=== PATIENT | male | born 1980 | race African-American/Black ===

== ENCOUNTER 2023-01-01 11:33 | Emergency (ER) | payer OTHER ==
[2023-01-01 11:53] VITALS: BP 135/86; PULSE 73; RESP 18; TEMP 97.8; BMI 36.9
[2023-01-01] MEDS ORDERED: LIDOCAINE 5% TOPICAL PATCH TP ONE (13:11)
[2023-01-01] MEDS ORDERED: ACETAMINOPHEN 500 MG TABLET (FP) PO ONE (13:11)
[2023-01-01] MEDS ORDERED: ACETAMINOPHEN 325 MG TABLET (FP) ONE (13:41)
[2023-01-01] MEDS ORDERED: LIDOCAINE 5% TOPICAL PATCH ONE (13:41)
[2023-01-01 14:03] LABS: BASO % 0.4 % (0-2.0); EOS % 2.5 % (0-4.5); HEMATOCRIT 40.8 % (35.4-49); LYMPH % 24.3 % (8-40); MCH 25.9 pg (25.7-33.7); MCHC 31.9 g/dl (32.0-35.9); MEAN CELL VOLUME 81.3 fl (80-96); MEAN PLT VOLUME 7.5 fl (7.5-11.1); MONO % 8.2 % (3.8-10.2); NEUT % 64.6 % (42.8-82.8); PLATELET COUNT 397 10^3/uL (134-434); RBC 5.03 M/mm3 (4.00-5.60); RDW 14.8 % (11.9-15.9); WHITE BLOOD COUNT 11.2 K/mm3 (4.0-10.0)
[2023-01-01 14:20] LABS: POTASSIUM 5.3 mmol/L (3.5-5.1)
[2023-01-01 14:22] LABS: CALCIUM 9.4 mg/dL (8.5-10.1)
[2023-01-01 14:23] LABS: ALBUMIN 3.5 g/dl (3.4-5.0); BLOOD UREA NITROGEN 14.6 mg/dL (7-18)
[2023-01-01 14:25] LABS: CREATININE 0.9 mg/dL (0.55-1.3)
[2023-01-01 14:27] LABS: BILIRUBIN,TOTAL 0.5 mg/dL (0.2-1)
[2023-01-01 14:34] LABS: PH,URINE 5.5 (5.0-8.0); URINE APPEARANCE CLEAR; URINE BILIRUBIN NEGATIVE (NEGATIVE); URINE COLOR YELLOW; URINE GLUCOSE (UA) NEGATIVE (NEGATIVE); URINE KETONE TRACE (NEGATIVE); URINE LEUK ESTERASE NEGATIVE (NEGATIVE); URINE NITRITE NEGATIVE (NEGATIVE); URINE PROTEIN TRACE (NEGATIVE)
[2023-01-01] MEDS ORDERED: KETOROLAC TROMETHAMINE 15 MG/ML VIAL IM ONE (15:37)
[2023-01-01] MEDS ORDERED: KETOROLAC TROMETHAMINE 15 MG/ML VIAL ONE (15:39)
[2023-01-01] MEDS ORDERED: POLYETHYLENE GLYCOL (HEALTHYLAX) 3350 17 GM PACKET ONE (15:39)
[2023-01-01] MEDS ORDERED: POLYETHYLENE GLYCOL (HEALTHYLAX) 3350 17 GM PACKET PO ONE (15:45)
[2023-01-01] MEDS ORDERED: KETOROLAC TROMETHAMINE 15 MG/ML VIAL IVPUSH ONE (15:48)
[2023-01-01] MEDS ORDERED: LIDOCAINE PATCH REMOVAL MC SCH (22:00)
== END 2023-01-01 16:00 | disposition home or self-care (01) ==
LOC: JER 11:33
PROC: 3E0333Z Introduction of Anti-inflammatory into Peripheral Vein, Percutaneous Approach (ICD-10-PCS; principal; 2023-01-01)
DX: M79.604 Pain in right leg (principal); R10.9 Unspecified abdominal pain; R35.0 Frequency of micturition
CPT/HCPCS: 36415; 74176-TC; 80053; 81003; 82962; 83690; 85025; 87086; 93005; 93010; 99285-25

== ENCOUNTER 2023-01-29 17:09 | Emergency (ER) | payer OTHER ==
[2023-01-29 17:16] VITALS: BMI 36.9
[2023-01-29] MEDS ORDERED: SODIUM CHLORIDE 0.9% 500 ML INFUS.BAG IV ONE (18:18)
[2023-01-29] MEDS ORDERED: ACETAMINOPHEN 1000 MG/100 ML BAG IVPB ONE (18:18)
[2023-01-29] MEDS ORDERED: ACETAMINOPHEN INJECTION 100 ML IVPB ONE (18:33)
[2023-01-29 20:54] LABS: POTASSIUM 4.7 mmol/L (3.5-5.1)
[2023-01-29 20:56] LABS: BASO % 0.5 % (0-2.0); EOS % 1.4 % (0-4.5); HEMATOCRIT 40.4 % (35.4-49); HEMOGLOBIN 13.3 GM/dL (11.7-16.9); LYMPH % 20.1 % (8-40); MCH 26.1 pg (25.7-33.7); MCHC 32.8 g/dl (32.0-35.9); MEAN CELL VOLUME 79.6 fl (80-96); MEAN PLT VOLUME 7.4 fl (7.5-11.1); MONO % 8.6 % (3.8-10.2); NEUT % 69.4 % (42.8-82.8); PLATELET COUNT 383 10^3/uL (134-434); RBC 5.07 M/mm3 (4.00-5.60); RDW 14.9 % (11.9-15.9); WHITE BLOOD COUNT 14.2 K/mm3 (4.0-10.0)
[2023-01-29 20:58] LABS: ALBUMIN 3.7 g/dl (3.4-5.0); BLOOD UREA NITROGEN 11.3 mg/dL (7-18); CALCIUM 9.5 mg/dL (8.5-10.1)
[2023-01-29 21:01] LABS: CREATININE 0.9 mg/dL (0.55-1.3)
[2023-01-29 21:02] LABS: BILIRUBIN,TOTAL 0.4 mg/dL (0.2-1)
[2023-01-29 21:03] LABS: TOT PROT 8.2 g/dl (6.4-8.2)
[2023-01-30] MEDS ORDERED: KETOROLAC TROMETHAMINE 30 MG/1 ML VIAL IM ONE (00:41)
[2023-01-30] MEDS ORDERED: KETOROLAC TROMETHAMINE 30 MG/1 ML VIAL ONE (00:44)
[2023-01-30] MEDS ORDERED: KETOROLAC TROMETHAMINE 30 MG/1 ML VIAL IVPUSH ONE (00:49)
[2023-01-30 01:32] VITALS: BP 126/87; PULSE 64; RESP 18; TEMP 98.7
== END 2023-01-30 01:32 | disposition home or self-care (01) ==
LOC: JER 17:09
PROC: 3E033NZ Introduction of Analgesics, Hypnotics, Sedatives into Peripheral Vein, Percutaneous Approach (ICD-10-PCS; principal; 2023-01-29)
PROC: 3E0333Z Introduction of Anti-inflammatory into Peripheral Vein, Percutaneous Approach (ICD-10-PCS; 2023-01-30)
DX: R10.12 Left upper quadrant pain (principal); R05.9 Cough, unspecified; R79.9 Abnormal finding of blood chemistry, unspecified; R07.89 Other chest pain
CPT/HCPCS: 36415; 71046-TC-FY; 74177-TC; 80053; 83690; 85025; 93005; 93010; 99285-25; Q9967

== ENCOUNTER 2023-02-06 11:30 | Emergency (ER) | payer OTHER ==
[2023-02-06 11:35] VITALS: BMI 36.9
[2023-02-06] MEDS ORDERED: MAG HYDROX/AL HYDROX/SIMETH 30 ML UNIT-DOSE CUP PO ONE (12:36)
[2023-02-06] MEDS ORDERED: ACETAMINOPHEN 1000 MG/100 ML BAG IVPB ONE (12:36)
[2023-02-06] MEDS ORDERED: FAMOTIDINE 20 MG/50 ML IVPB 20 MG/50 ML MG IVPB ONE ×2 (12:36→12:50)
[2023-02-06] MEDS ORDERED: ACETAMINOPHEN INJECTION 100 ML IVPB ONE (12:50)
[2023-02-06] MEDS ORDERED: MAG HYDROX/AL HYDROX/SIMETH 30 ML UNIT-DOSE CUP ONE (12:50)
[2023-02-06 13:21] LABS: BASO % 0.4 % (0-2.0); EOS % 2.6 % (0-4.5); HEMATOCRIT 38.6 % (35.4-49); HEMOGLOBIN 12.7 GM/dL (11.7-16.9); LYMPH % 19.6 % (8-40); MCH 26.6 pg (25.7-33.7); MCHC 32.9 g/dl (32.0-35.9); MEAN PLT VOLUME 7.2 fl (7.5-11.1); MONO % 6.2 % (3.8-10.2); NEUT % 71.2 % (42.8-82.8); PLATELET COUNT 356 10^3/uL (134-434); RBC 4.77 M/mm3 (4.00-5.60); RDW 14.8 % (11.9-15.9); WHITE BLOOD COUNT 9.4 K/mm3 (4.0-10.0)
[2023-02-06 13:41] LABS: PH,URINE 5.5 (5.0-8.0); URINE APPEARANCE CLEAR; URINE BILIRUBIN NEGATIVE (NEGATIVE); URINE COLOR YELLOW; URINE GLUCOSE (UA) NEGATIVE (NEGATIVE); URINE KETONE NEGATIVE (NEGATIVE); URINE LEUK ESTERASE NEGATIVE (NEGATIVE); URINE NITRITE NEGATIVE (NEGATIVE); URINE PROTEIN NEGATIVE (NEGATIVE); URINE UROBILINOGEN 0.2 mg/dL (0.2-1.0)
[2023-02-06 13:57] LABS: POTASSIUM 4.6 mmol/L (3.5-5.1)
[2023-02-06 13:59] LABS: CALCIUM 8.7 mg/dL (8.5-10.1)
[2023-02-06 14:00] LABS: ALBUMIN 3.3 g/dl (3.4-5.0)
[2023-02-06 14:04] LABS: BILIRUBIN,TOTAL 0.3 mg/dL (0.2-1); TOT PROT 7.3 g/dl (6.4-8.2)
[2023-02-06 14:06] LABS: BLOOD UREA NITROGEN 11.6 mg/dL (7-18)
[2023-02-06 15:30] VITALS: BP 125/45; PULSE 64; RESP 16; TEMP 97.2
== END 2023-02-06 15:30 | disposition home or self-care (01) ==
LOC: JER 11:30
PROC: 3E033GC Introduction of Other Therapeutic Substance into Peripheral Vein, Percutaneous Approach (ICD-10-PCS; principal; 2023-02-06)
PROC: 3E033NZ Introduction of Analgesics, Hypnotics, Sedatives into Peripheral Vein, Percutaneous Approach (ICD-10-PCS; 2023-02-06)
DX: R07.9 Chest pain, unspecified (principal); M54.50 Low back pain, unspecified
CPT/HCPCS: 36415; 71046-TC-FY; 80053; 81003; 83690; 84484; 85025; 87086; 93005; 93010; 99285-25

== ENCOUNTER 2023-07-06 10:34 | Emergency (ER) | payer OTHER ==
[2023-07-06 10:45] VITALS: BP 144/95; PULSE 80; RESP 14; TEMP 98.4; BMI 36.9
[2023-07-06] MEDS ORDERED: NAPROXEN 500 MG TABLET PO ONE (11:40)
[2023-07-06] MEDS ORDERED: NAPROXEN 500 MG TABLET ONE (11:45)
[2023-07-06] MEDS ORDERED: predniSONE 20 MG TABLET (UD) PO ONE (12:56)
[2023-07-06] MEDS ORDERED: predniSONE 20 MG TABLET (UD) ONE (13:03)
== END 2023-07-06 13:08 | disposition home or self-care (01) ==
LOC: JERFT 10:34
DX: M79.675 Pain in left toe(s) (principal); R22.42 Localized swelling, mass and lump, left lower limb
CPT/HCPCS: 73630-TC-LT; 82962; 99284-25

== ENCOUNTER 2024-03-12 11:46 | Emergency (ER) | payer OTHER ==
[2024-03-12 11:53] VITALS: BP 136/90; PULSE 79; RESP 18; TEMP 98.6; BMI 36.9
[2024-03-12] MEDS ORDERED: KETOROLAC TROMETHAMINE 30 MG/1 ML VIAL ONE ×2 (13:33→13:34)
[2024-03-12] MEDS ORDERED: diazePAM 5 MG TABLET ONE (13:33)
[2024-03-12] MEDS: diazePAM 5 MG TABLET PO ONE (13:39)
[2024-03-12] MEDS: KETOROLAC TROMETHAMINE 30 MG/1 ML VIAL IM ONE (13:39)
== END 2024-03-12 14:41 | disposition home or self-care (01) ==
LOC: JERFT 11:46
PROC: 3E0133Z Introduction of Anti-inflammatory into Subcutaneous Tissue, Percutaneous Approach (ICD-10-PCS; principal; 2024-03-12)
DX: M25.561 Pain in right knee (principal)
CPT/HCPCS: 73562-TC-RT-FY; 99284-25